=== PATIENT | female | born 1955 | race Caucasian/White ===

== ENCOUNTER → 2018-06-19 08:44 | Outpatient (CLI) | payer BC | END | disposition home or self-care (01) | LOC: D.CT 08:44 | DX: I70.219 Atherosclerosis of native arteries of extremities with intermittent claudication, unspecified extremity (principal); M79.605 Pain in left leg; M79.604 Pain in right leg ==

== ENCOUNTER → 2018-08-01 13:56 | Outpatient (CLI) | payer MEDICAID | END | disposition home or self-care (01) | LOC: D.RT 13:56 | DX: R06.02 Shortness of breath (principal); R01.1 Cardiac murmur, unspecified; R09.89 Other specified symptoms and signs involving the circulatory and respiratory systems ==

== ENCOUNTER 2018-09-12 13:21 | Outpatient (CLI) | payer MEDICARE, BC ==
[2018-09-12] VITALS (11 sets, daily range): BP systolic 90–117; BP diastolic 57–85; Ht 162.6 cm; Wt 60.0 kg
[~2018-09-12] VITALS: Ht 162.6 cm; Wt 60.0 kg
--- NOTE | ~2018-09-12 | OP ---
PATIENT NAME: RICHY CHEN MEDICAL RECORD: [id number] :51 LOCATION:D.M2 D.2121 ADMISSION DATE:09/12/18 SURGEON: PAUL GOODMAN MD DATE OF OPERATION: 09/12/2018 PROCEDURES: 1. PTCA stent left main. 2. Cardioversion. 3. Left heart catheterization. 4. Selective coronary angiography. 5. Left ventriculogram. INDICATION: Angina, atrial fibrillation, coronary artery disease. PROCEDURE IN DETAIL: After informed consent was obtained and after a detailed description of risks, benefits as well as alternative therapies, the patient elected to proceed with angiogram and angioplasty. The right radial area was prepped and draped in normal sterile fashion. Right radial artery was cannulated via modified Seldinger technique with placement of 6-Ivorian sheath. All catheters exchanged through this sheath. FINDINGS: The left ventriculogram was performed in standard 30-degree CUMMINGS view, reveals good cardiac wall motion throughout all segments. Overall ejection fraction is 60%. SELECTIVE CORONARY ANGIOGRAPHY: 1. Left main has 80% stenosis at the ostium with significant pressure damping of the diagnostic catheter when engaged. 2. The left anterior descending has mild irregularities, no flow-limiting stenosis. 3. The left circumflex has [id number] irregularities, but no flow-limiting stenosis. 4. Right coronary artery has mlsa-[id number]-nbjsjyvt irregularities, but no flow-limiting stenosis. PTCA STENT OF THE LEFT MAIN: Due to her upcoming aortobifemoral surgery, a bare-metal stent was opted for at a 3.5 x 8 mm Integrity. Result was 0% residual stenosis. OVERALL IMPRESSION: Successful percutaneous transluminal coronary angioplasty stent of the left main going from 80% initial stenosis to 0% residual. The patient remained in atrial fibrillation. DC cardioversion was performed. Continuous heart rate, O2 saturation, blood pressure monitoring all undertaken. She received 1 shock at 200 joules restoring sinus rhythm. TRANSINT:[id number] Voice Confirmation ID: [id number] DOCUMENT ID: [id number] OPERATIVE REPORT [id number] GUSTAVONATALIIA BLACKPAUL AMARO MD at 1903 CC: [id number] DICTATION DATE: 09/12/181706 SENIOR BRAND MANAGER: 09/12/182148 DIS IN 09/13/18 [facility] [address] [facility] [place] [address]
--- NOTE | ~2018-09-12 | HEMODYNAMI ---
PATIENT:RICHY CHEN MEDICAL RECORD: [id number] : 51 [facility] ADMISSION DATE: 09/12/18 Generatedon:09/12/201817:07 Patient name: RICHY CHEN Patient #: [id number] SSN: : 1 Date of study: 09/12/2018 Page: Of Hemodynamic Procedure Report Patient Data Patient Demographics Procedure consent was obtained First Name: RICHY Gender: Female Last Name: GUSTAVO : 1955 Patient #: [id number] Age: 63 year(s) Race: Unknown Additional ID: [id number] Contact details Address: [facility] [address] State: [place] City: [facility] Zip code: [address] Past Medical History Allergies Allergen Reaction Date Comments Reported Other allergy 09/12/2018 PCN Admission Admission Data Admission Date: 09/12/2018 Admission Time: 13:21 Admit Source: Emergency department Procedure Procedure Types Cath Procedure Diagnostic Procedure C [facility] w/Coronaries Cardioversion External PCI Procedure Coronary Stent Coronary Stent Initial Procedure Description Procedure Date Procedure Date: 09/12/2018 Procedure Start Time: 16:48 Procedure End Time: 17:07 Procedure Staff Name Function Mauricio Quintanilla MD Performing Physician Rosa M Overton RT Scrub Maria Antonia Peryr RN Nurse Parker Hess RT Monitor Procedure Data Cath Procedure Fluoroscopy Diagnostic fluoroscopy Total fluoroscopy Time: 3.5 time: 3.5 min min Diagnostic fluoroscopy Total fluoroscopy dose: 484 dose: 484 mGy mGy Contrast Material Contrast Material Type Amount (ml) Isovue 300 84 Entry Location Entry Primary Successful Side Size Upsize Upsize Entry Closure Torrez ccessful Closure Location (Fr) 1 (Fr) 2 (Fr) Remarks Device Remarks Radial Right 6 Fr Mechanical artery Short Compression Estimated blood loss: 10 ml Diagnostic catheters Device Type Used For End Catheter Placement DIAGNOSTIC Alton 110cm 5 Procedure Fr catheter ([id number]) Procedure Complications No complications Procedure Medications Medication Administration Route Dosage 0.9% NaCl I.V. 100 ml/hr Oxygen etCO2 Nasal cannula 2 l/min Lidocaine 2% added to field 20 Heparin Flush Bag added to field 2 bags (1000units/500ml NS) Radial Cocktail added to field 1 syringe (Verapomil 2mg/Nitro 400mcg/Heparin 1500units) Fentanyl I.V. 50 mcg Versed I.V. 2 mg Radial Cocktail I.A. 1 syringe (Verapomil 2mg/Nitro 400mcg/Heparin 1500units) Heparin Bolus I.V. 4000 units Integrilin (Bolus I.V. 5.6 ml 2mg/ml) Integrilin (Bolus wasted 4.4 ml 2mg/ml) Fentanyl I.V. 50 mcg Plavix P.O. 600 mg Hemodynamics Rest Heart Rate: 98 (bpm) Snapshots Pre Cath Intra NCS Post Cath Vital Signs Time Heart Resp SPO2 etCO2 NIBP Rhythm Pain Sedation Rate (ipm) (%) (mmHg) (mmHg) Status Level (bpm) 16:42:25 98 17 94 16.4 101/51(86) NSR 0 (11) 10(A) , No pain 16:46:32 108 17 96 7.4 91/75(89) NSR 0 (11) 9(A) , No pain 16:50:42 108 17 96 5.2 99/54(70) NSR 0 (11) 9(A) , No pain 16:54:50 133 17 97 18.6 102/75(83) NSR 0 (11) 9(A) , No pain 16:59:00 100 17 98 19.3 93/64(91) NSR 0 (11) 9(A) , No pain 17:03:10 76 17 95 0 82/56(66) NSR 0 (11) 9(A) , No pain 17:07:16 71 13 94 20.1 83/53(65) NSR 0 (11) 10(A) , No pain Medications Time Medication Route Dose Verified Delivered Reason Not es Effectiveness by by 16:43:26 0.9% NaCl I.V. 100 Mauricio Maria Antonia used for ml/hr Dwight Perry health commissioner 16:43:37 Oxygen etCO2 2 l/min Mauricio Lópeza used for Nasal Dwight Perry procedure cannula RN 16:43:44 Lidocaine 2% added 20ml Mauricio Martínez for local to vial Dwight Quintanilla MD anesthetic field 16:43:51 Heparin Flush added 2 bags Mauricio Martínez used for Bag to Dwight Quintanilla MD procedure (1000units/500ml field NS) 16:44:09 Radial Cocktail added 1 Mauriciopamela Martínez used for (Verapomil to syringe Dwight Quintanilla MD procedure 2mg/Nitro field 400mcg/Heparin 1500units) 16:45:16 Fentanyl I.V. 50 mcg Mauricio Maria Antonia for sedation Dwight Perry RN 16:45:28 Versed I.V. 2 mg Mauricio Maria Antonia for sedation Dwight Perry RN 16:49:40 Radial Cocktail I.A. 1 Mauricio Martínez for (Verapomil syringe Dwight Quintanilla MD vasodilation 2mg/Nitro 400mcg/Heparin 1500units) 16:57:17 Heparin Bolus I.V. 4000 Mauricio Maria Antonia for units Dwight Perry anticoagulation RN 16:57:32 Integrilin I.V. 5.6 ml Mauricio Chaneyyla for (Bolus 2mg/ml) Dwight Perry antiplatelet RN therapy 16:57:41 Integrilin wasted 4.4 ml Mauricio Maria Antonia for (Bolus 2mg/ml) Dwight Perry antiplatelet RN therapy 16:58:48 Fentanyl I.V. 50 mcg Mauricio Maria Antonia for sedation Dwight Perry RN 17:03:19 Plavix P.O. 600 mg Mauricio Maria Antonia for Dwight Perry antiplatelet RN therapy Procedure Log Time Note 16:14:59 Informed consent obtained and on chart 16:15:03 Admit Source: Emergency department 16:15:19 Diagnostic Cath status Elective 16:15:21 Rosa M Overton RT(R) sent for patient. Start room use. 16:15:22 Time tracking: Regular hours (M-F 7:00 - 5:00) 16:15:26 Plan of Care:Hemodynamics will remain stable., Cardiac rhythm will remain stable., Comfort level will be maintained., Respiratory function will remain adequate., Patient/ family verbilizes understanding of procedure., Procedure tolerated without complication., Recovers from procedure without complications.. 16:15:36 H&P Date Dictated: 09/12/2018 Within 30 days and on chart.. 16:24:31 Patient received from ED to CCL 1 Alert and oriented. Tansferred to table in Supine position. 16:24:32 Warm blankets applied, and dinesh hugger turned on for patient comfort. 16:24:34 Correct patient and procedure confirmed by team. 16:24:35 Pre-procedure instructions explained to patient. 16:24:36 Pre-op teaching completed and patient verbalized understanding. 16:24:38 Family in waiting room. 16:24:39 Patient NPO since Midnight. 16:28:11 Patient allergic to Other allergyPCN 16:28:15 Is the patient allergic to Iodine/contrast media? No. 16:28:20 Is patient on blood thinner?No 16:28:58 Patient diabetic? No. 16:29:12 Previous problem with sedation/anesthesia? No ? 16:29:15 Snore? No 16:29:16 Sleep apnea? No 16:29:17 Deviated septum? No 16:29:18 Opens mouth fully? Yes 16:29:19 Sticks out tongue? Yes 16:29:26 Airway obstruction? Yes ASTHMA/COPD 16:29:30 Dentures? No ? 16:40:26 ECG and BP/O2 sat monitors applied to patient. 16:41:06 Vital chart was started 16:43:26 0.9% NaCl 100 ml/hr I.V. was administered by Maria Antonia Perry RN; used for procedure; 16:43:37 Oxygen 2 l/min etCO2 Nasal cannula was administered by Maria Antonia Perry RN; used for procedure; 16:43:44 Lidocaine 2% 20ml vial added to field was administered by Mauricio Quintanilla MD; for local anesthetic; 16:43:51 Heparin Flush Bag (1000units/500ml NS) 2 bags added to field was administered by Mauricio Quintanilla MD; used for procedure; 16:43:55 Baseline sample Acquired. 16:44:09 Radial Cocktail (Verapomil 2mg/Nitro 400mcg/Heparin 1500units) 1 syringe added to field was administered by Mauricio Quintanilla MD; used for procedure; 16:44:10 Rhythm: atrial fibrillation 16:44:11 Full Disclosure recording started 16:44:23 Pre procedure: right dorsailis pedis pulse Doppler 16:44:27 Modified Sahil's test Ulnar < 7 seconds 16:44:29 Patient pain scale 0/10 ?. 16:44:34 IV patent on arrival in left forearm with 0.9% NaCl at [facility]. 16:44:37 Lab results completed and on chart. 16:44:40 Right Radial & Right Groin area was prepped with chlora-prep and draped in sterile fashion 16:44:41 Alarms reviewed by R. N. 16:44:41 Sharps counted by scrub and verified by R.N. 16:44:42 --------ALL STOP TIME OUT------ 16:44:43 Final Timeout: patient, procedure, and site verified with staff and physician. All members of the team are in agreement. 16:44:46 Right Radial & Right Groin site verified by team. 16:44:49 Physical assessment completed. ASA score P 2 - A patient with mild systemic disease as per Mauricio Quintanilla MD. 16:44:52 Sedation plan: IV Moderate Sedation Medication:Versed, Fentanyl 16:45:16 Fentanyl 50 mcg I.V. was administered by Maria Antonia Perry RN; for sedation; 16:45:28 Versed 2 mg I.V. was administered by Maria Antonia Perry RN; for sedation; 16:48:23 Use device set Radial Dx or PCI 16:48:26 Tegaderm 4 x 4 (1626W) opened to sterile field. 16:48:27 ACIST Manifold (09307) opened to sterile field. 16:48:28 ACIST Hand Control (82087) opened to sterile field. 16:48:29 ACIST Syringe (25993) opened to sterile field. 16:48:29 Medline Cath Pack ([id number]) opened to sterile field. 16:48:29 Bag Decanter () opened to sterile field. 16:48:30 DIAGNOSTIC WIRE .035 260cm J wire (408313) opened to sterile field. 16:48:31 MBrace Wrist Support (560044808) opened to sterile field. 16:48:32 SHEATH 6Fr Prelude Radial ([id number]) opened to sterile field. 16:48:37 Procedure started. 16:48:46 Local anesthetic to right radial artery with Lidocaine 2% by Mauricio Quintanilla MD.INITIAL ACCESS ONLY 16:48:57 A 6 Fr Short sheath was inserted into the Right Radial artery 16:49:40 Radial Cocktail (Verapomil 2mg/Nitro 400mcg/Heparin 1500units) 1 syringe I.A. was administered by Mauricio Quintanilla MD; for vasodilation; 16:50:04 A DIAGNOSTIC Alton 110cm 5 Fr catheter (593264) was advanced over the wire and used for Procedure. 16:50:33 LV angiography performed. 16:50:36 LV gram done using CUMMINGS 16:50:43 EF : 55 % 16:50:55 Injector settings: Ml/sec: 7, Volume: 15, 16:51:05 LCA angiography performed. 16:52:05 RCA angiography performed. 16:52:29 Catheter exchanged over wire. 16:52:34 Use device set GIANA PCI 16:53:03 INFLATOR Merit BasixCompak (HO9555) opened to sterile field. 16:53:20 GUIDE 6FR EBU 3.0 SH catheter ([id number]) opened to sterile field. 16:54:15 6 Fr EBU 3 SH guide catheter was inserted over the wire 16:54:38 CPTXS wire advanced. 16:56:39 CHOICE PT Extra Support J 300cm guide wire ([id number]) opened to sterile field. 16:56:42 Wire advanced across lesion. 16:57:17 Heparin Bolus 4000 units I.V. was administered by Maria Antonia Perry RN; for anticoagulation; 16:57:32 Integrilin (Bolus 2mg/ml) 5.6 ml I.V. was administered by Maria Antonia Perry RN; for antiplatelet therapy; 16:57:41 Integrilin (Bolus 2mg/ml) 4.4 ml wasted was administered by Maria Antonia Perry RN; for antiplatelet therapy; 16:58:16 Place stent Inflation Number: 1 A INTEGRITY OTW 3.5 X 9 stent ([id number]) was prepped and advanced across the LMCA. The stent was deployed at 17 INES for 0:10 (min:sec). 16:58:48 Fentanyl 50 mcg I.V. was administered by Maria Antonia Perry RN; for sedation; 16:59:22 Stent catheter was removed intact over wire. 16:59:23 Wire removed. 16:59:24 Guide catheter removed. 16:59:31 Quick combo pads placed on patients chest and back. 16:59:56 Defibrillator synced and charged to 200 Joules. 16:59:59 Shock delivered. 17:00:04 Patient cardioverted to sinus rhythm . 17:00:09 TR BAND Standard ([id number]) opened to sterile field. 17:00:26 Sheath removed intact; hemostasis achieved with Mechanical Compression to the Right Radial artery. 17:00:30 Procedure ended.(Physican Out) 17:03:01 TR band inflated with 10cc of air. 17:03:19 Plavix 600 mg P.O. was administered by Maria Antonia Perry RN; for antiplatelet therapy; 17:05:02 Fluoroscopy time 03.50 minutes. 17:05:06 Fluoroscopy dose: 484 mGy 17:05:06 Flurop Dose total: 484 17:05:09 Contrast amount:Isovue 300 84ml. 17:05:11 Sharps counted by scrub and verified by R.N. 17:05:12 Insertion/operative site no bleeding no hematoma. 17:05:14 Post Procedure Pulses reassessed and unchanged 17:05:18 Post-procedure physical assessment completed. ASA score P 2 - A patient with mild systemic disease as per Mauricio Quintanilla MD. 17:05:21 Post procedure rhythm: sinus rhythm 17:05:31 Estimated blood loss: 10 ml 17:05:33 Post procedure instruction explained to patient.Patient verbalizes understanding. 17:05:34 Patient needs reinforcement of post procedure teaching. 17:06:11 Procedure type changed to Cath procedure, Diagnostic procedure, LHC, LHC w/Coronaries, Cardioversion External, PCI procedure, Coronary Stent, Coronary Stent Initial 17:06:56 Procedure and supply charges have been captured, reviewed, submitted and are correct. 17:06:59 Procedure Complication : No complications 17:07:01 Vital chart was stopped 17:07:02 See physician's report for complete and final results. 17:07:04 Report given to PCU. 17:07:07 Patient transfered to PCU with Bed. 17:07:09 Procedure ended. 17:07:09 Full Disclosure recording stopped 17:07:16 End room use (Document Last) Intervention Summary Intervention Notes Time ActionType Lesion and Equipment Action# Pressure Duration Attributes Used 16:58:[address] stent LMCA INTEGRITY 1 17 00:10 OTW 3.5 X 9 stent ([id number]) Device Usage Item Name Manufacture Quantity Catalog Number Hospital Part Current M inimal Lot# / Charge Number Stock Stock Serial# Code Tegaderm 4 x 4 3M 1 1626W [id number] 434900 045146 5 (1626W) ACIST Manifold Acist 1 34420 407425 668187 515470 5 (34130) [employer] Inc ACIST Hand Acist 1 74152 529140 141160 796875 5 Control (91491) [employer] Inc ACIST Syringe Acist 1 41119 378545 290026 242902 2 0 (97133) Medical Systems Inc Medline Cath Medline 1 [id number] 779701 41550 919708 5 Pack ([id number]) Bag Decanter Microtek 1 2001S 122099 17171 807073 5 (2001S) Medical Inc. DIAGNOSTIC WIRE St Neto 1 399352 002014 574809 239121 3 0 .035 260cm J wire (250788) MBrace Wrist Advanced 1 140-0250-00 868087 89251 161938 5 Support Vascular ([id number]) Dynamics SHEATH 6Fr Merit 1 [id number] 419658 425581 348569 5 Prelude Radial Medical ([id number]) DIAGNOSTIC Terumo 1 40-2891 435498 089093 725240 5 Alton 110cm 5 Fr catheter (278132) INFLATOR Merit Merit 1 IL9387 375574 674226 196128 1 5 TheSquareFoot Medical (ZD0010) GUIDE 6FR EBU Medtronic 1 [id number] 968617 84832 734972 0 3.0 SH catheter ([id number]) CHOICE PT Extra [place] 1 [id number] 918502 807381 481290 5 Support J 300cm Scientific guide wire ([id number]) INTEGRITY OTW Medtronic 1 [id number] 822567 493498 1 [id number] 3.5 X 9 stent ([id number]) TR BAND Terumo 1 [id number] 666206 205037 441089 4 0 Standard (MHM19KDM) Signature Audit Feura Bush Stage Time Signature Unsigned Intra-Procedure 09/12/2018 Parker Hess 5:07:44 PM RT(R) Signatures Monitor : Parker Hess RT Signature : Date : Time : [address] [place] [address]
--- NOTE | ~2018-09-12 | HP ---
PATIENT: RICHY LOMAX MEDICAL RECORD: [id number] ACCOUNT: [id number] LOCATION:[address] : 51 ADMISSION DATE: 09/12/18 PCP: MOO HASSAN MD HISTORY AND PHYSICAL EXAMINATION DIAGNOSES: 1. Chest pain compatible with angina. 2. Supraventricular tachycardia. 3. Abnormal ECG. 4. Atrial fibrillation. 5. Smoking history. 6. Peripheral vascular disease. HISTORY OF PRESENT ILLNESS: Ms. Lomax presents with chest pain today, found to be in an SVT at 180, was given adenosine. She converted to atrial fibrillation, given Cardizem, she is now at 120, but still in atrial fibrillation. She has not had a history of dysrhythmia. She has not had a history of chest pain. She does have a history of peripheral vascular disease. It appears that her left leg is totally occluded, they thinking about a peripheral vascular surgery with Dr. Moore. PHYSICAL EXAMINATION: GENERAL APPEARANCE: Well-nourished, well-developed, appears stated age. Level of distress, comfortable. PSYCHIATRIC: Mental status, alert, normal affect. Orientation, oriented to time, place and person. EYES: Lids and conjunctiva, noninjected. No discharge, no pallor. ENT: Lips, teeth, gums, normal dentition. Oropharynx, no cyanosis, no pallor. NECK: Carotid arteries, bilateral normal upstroke, no bruits, no thrills. JUGULAR VEINS: No jugular venous pressure or distention. CERVICAL LYMPH NODES: Nontender, nonenlarged. THYROID: Not enlarged. Nontender. No nodules. LUNGS: Respiratory effort, unlabored. CHEST: Normal curvature. No thoracic deformity. No chest wall tenderness. Percussion, resonant. Auscultation, clear. No wheezes, no rales, no rhonchi. CARDIOVASCULAR: Precordial exam, nondisplaced. No heaves or pericardial thrills. Rate and rhythm, regular. Heart sounds, normal S1, normal S2. No S3, no gallop, no rub. Systolic murmur, not heard. Diastolic murmur, not heard. EXTREMITIES: No cyanosis, no edema. Peripheral pulses, full and equal in all extremities, except as noted. No bruits appreciated. ABDOMEN: Soft, nondistended. Normal aorta. No bruit. Nontender. No masses. Liver, nontender, no hepatomegaly. Spleen, nontender, no splenomegaly. MUSCULOSKELETAL: No joint tenderness. No joint swelling. No erythema. NEUROLOGICAL: Normal gait, normal strength, normal tone. SKIN: Warm and dry. OVERALL IMPRESSION: Chest pain with abnormal ECG, due to the EKG changes when she was having the tachycardia and the chest pain. We will proceed with coronary angiography and we will give her sotalol and plan for DC cardioversion as well. TRANSINT:[id number] Voice Confirmation ID: [id number] DOCUMENT ID: [id number] HISTORY AND PHYSICAL [id number] RICHY LOMAX, PAUL MUÑOZ at 2074 CC: [id number] DICTATION DATE: 09/12/18 1603 DOCTOR OF PODIATRIC MEDICINE: 09/12/18 1621 [facility] [address] [place] [address]
--- NOTE | ~2018-09-12 | MORECARE ---
CASE MANAGEMENT DISCHARGE SUMMARY PATIENT: RICHY CHEN UNIT: [id number] ADM DATE: 09/12/18 AGE: 63 : 51 SEX: F ROOM/BED: D.2121 AUTHOR: REBECA MCLAUGHLIN PHYSICIAN: REFERRING PHYSICIAN: PAUL GOODMAN MD DATE OF SERVICE: 09/15/18 Discharge Plan Patient Name: RICHY CHEN [facility] [facility] 1955 Planned Disposition: Home Anticipated Discharge Date: 09/13/18 Discharge Date: 09/13/2018 Expected LOS: 1 Initial Reviewer: [email or web address] Initial Review Date: 09/15/2018 Generated: 09/15/18 10:02 am Coverage Notice Reviewer: [email or web address] Kevin Phillips Notice Issued Date-Time: 09/13/2018 11:00 Notice Type: IM Discharge Notice Notice Delivered To: Patient Relationship to Patient: Technician Helper Instrument Name: Delivery Method: HAND - Hand Delivered Iris Days: Prior Verbal Notification: Recipient Understood Notice: Yes Recipient Signature: Yes Med Rec Note Co-signed by Attending: Coverage Notice Comment: Signature obtained after explanation regarding discharge IMM. Copt to the patient. Signed copy to the patient's hard cover chart. Patient Name: RICHY CHEN Page [phone] at 0902 All edits/amendments must be made on the electronic document DICTATION DATE: 09/15/18900 [employer] [place] POLICE OFFICER: NITO 09/15/18900 RPT#: [id number] DC DATE:09/13/18 STATUS: DIS IN [facility] [address] [place] [address] END OF REPORT
[2018-09-12 14:02] LABS: BASOPHILS 0.3 % (0-2); EOSINOPHILS 1.3 % (0-7); HEMATOCRIT 43.3 % (36.0-48.0); HEMOGLOBIN 14.6 g/dL (12-16); IMMATURE GRANULOCYTES 0.4 % (0-5); LYMPHOCYTES 18.1 % (15-50); MCH 31.7 pg (26.0-34.0); MCHC 33.7 g/dL (31.0-37.0); MCV 93.9 fL (80.0-100.0); MONOCYTES 6.5 % (2-11); NEUTROPHILS 73.4 % (40-80); PLATELET COUNT 281 10x3/uL (130-400); RBC 4.61 10x6/uL (4.00-5.40); RDW 13.3 % (11.5-14.5); WBC 11.2 10x3/uL (4.8-10.8)
[2018-09-12 14:13] LABS: APTT 28.3 SECONDS (22.8-39.4); INR 0.98 (0.85-1.17); PROTIME 12.6 SECONDS (11.6-15.0)
[2018-09-12 14:16] LABS: ALBUMIN 3.8 g/dL (3.4-5.0); ALKALINE PHOSPHATASE 45 U/L (46-116); ALT (SGPT) 27 U/L (10-68); BILIRUBIN - TOTAL 0.32 mg/dL (0.2-1.3); CALC OSMOLALITY 276 mosm/kg (275-300); CALCIUM 9.1 mg/dL (8.5-10.1); CARBON DIOXIDE 29.1 mmol/L (21.0-32.0); CHLORIDE - SERUM 100 mmol/L (98-107); CREATININE - SERUM 1.1 mg/dL (0.6-1.3); GLUCOSE 107 mg/dL (74-106); POTASSIUM - SERUM 3.7 mmol/L (3.5-5.1); PROTEIN - SERUM 7.2 g/dL (6.4-8.2); SODIUM 138 mmol/L (136-145); UREA NITROGEN 14 mg/dL (7-18); eGFR NON AFRICAN AMERICAN 53 mL/min (90-120)
[2018-09-12 14:26] LABS: CKMB 3.9 U/L (0.0-3.6); CREATINE KINASE 133 UL (21-215); THYROID STIMULATING HORMONE 3.33 uIU/mL (0.36-3.74)
[2018-09-13 04:00] VITALS: BP 125/66
[2018-09-13 08:00] VITALS: BP 121/71
[2018-09-13] MEDS ORDERED: BETAPACE 80 MG80 MG PO (09:51)
[2018-09-13] MEDS ORDERED: ELIQUIS5 MG PO (09:57)
== END 2018-09-13 11:34 | disposition home or self-care (01) ==
LOC: OBSVTIME → D.OPS 13:21 → D.ER 13:21 → D.M2 17:20 → D.OPS 17:21 → D.ER 17:21 → OBSVTIME 17:22 → D.M2 17:22 → D.ER 17:22 → D.M2 09-13 11:34 → D.OPS 09-13 11:34
PROVIDERS: Emergency Medicine
DX: I25.119 Atherosclerotic heart disease of native coronary artery with unspecified angina pectoris (principal); I73.9 Peripheral vascular disease, unspecified; R94.31 Abnormal electrocardiogram [ECG] [EKG]; I47.1 Supraventricular tachycardia; I48.91 Unspecified atrial fibrillation

== ENCOUNTER → 2018-11-07 13:03 | Outpatient (CLI) | payer MEDICARE, BC ==
[2018-09-12 22:14] VITALS: BMI 22.7
[~2018-11-07 13:03] MED LIST: BETAPACE 80 MG80 MG PO; ELIQUIS5 MG PO
[2018-11-08 08:16] LABS: IMMUNOGLOBULIN A 163 mg/dL (87-352); IMMUNOGLOBULIN G 863 mg/dL (700-1600); IMMUNOGLOBULIN M 40 mg/dL (26-217)
[2018-11-13 03:09] LABS: IMMUNOGLOBULIN E 7 IU/mL (0-100)
== END | disposition home or self-care (01) ==
LOC: D.RT 11-03 13:00 → D.CT 11-03 13:00
PROVIDERS: Internal Medicine Pulmonary Disease
DX: J45.909 Unspecified asthma, uncomplicated (principal); J47.9 Bronchiectasis, uncomplicated

== ENCOUNTER → 2018-12-17 14:30 | Outpatient (CLI) | payer MEDICARE, BC ==
[2018-09-12 22:14] VITALS: BMI 22.7
== END | disposition home or self-care (01) ==
LOC: D.RT 14:30
DX: J44.9 Chronic obstructive pulmonary disease, unspecified (principal)

== ENCOUNTER → 2021-02-20 13:22 | Outpatient (CLI) | payer MEDICARE, BC | END | disposition home or self-care (01) | LOC: D.LAB 13:22 | DX: Z11.52 Encounter for screening for COVID-19 (principal) ==

== ENCOUNTER → 2021-02-24 14:37 | Outpatient (CLI) | payer MEDICARE, BC ==
[2018-09-12 22:14] VITALS: BMI 22.7
== END | disposition home or self-care (01) ==
LOC: D.RT 11-24 08:00 → D.RAD 11-24 08:45 → D.RT 12-09 08:00
PROVIDERS: ATTEND Internal Medicine Pulmonary Disease
DX: J44.9 Chronic obstructive pulmonary disease, unspecified (principal)